=== PATIENT | female | born 1975 | race Caucasian/White ===

== ENCOUNTER 2023-05-02 18:14 | Emergency (ER) | payer OTHER ==
[~2023-05-02] VITALS: Ht 162.6 cm; Wt 101.0 kg
[~2023-05-02 18:14] MED LIST: FLOMAX0.4 MG PO; KETOROLAC TROME10 MG PO; ONDANSETRON ODT4 MG PO
--- OUTSIDE RECORDS SUMMARY | 2023-05-02 18:22 | XMS ---
PreManage Notification: DINA ERNANDEZ [employer] Events No recent Security Events currently on file CRITERIA MET - [facility] - 2 Visits in 30 Days CARE PROVIDERS There are no care providers on record at this time. Lisette has no Care Guidelines for this patient. Abdelrahman [facility] (12 MO.) [facility] NOTE: Visits indicate total known visits. ED/C VISIT TRACKING (12 MO.) [facility]02[facility]2023 18[facility] COMPLAINT: - ABDOMINAL PAIN 04/03/2023 17:50 [facility] OR TYPE: Emergency COMPLAINT: - ABDOMINAL PAIN DIAGNOSES: - Allergy status to analgesic agent - Allergy status to narcotic agent - Allergy status to sulfonamides - Hydronephrosis with renal and ureteral calculous obstruction - Unspecified abdominal pain INPATIENT VISIT TRACKING (12 MO.) No inpatient visits to display in this time frame [id number]
[2023-05-02 19:23] LABS: BASOPHILS 0.9 % (0-2); EOSINOPHILS 1.2 % (0-6); HEMATOCRIT 41.3 % (35.0-50.0); HEMOGLOBIN 13.9 g/dL (12.0-18.0); LYMPHOCYTES 25.5 % (24-44); MCH 29.5 (27-36); MCHC 33.7 g/dl (30-36); MCV 87.6 fl (81-99); MONOCYTES 7.3 % (0-12); NEUTROPHILS 65.1 % (39-80); PLATELET COUNT 302 K/uL (140-440); RBC 4.71 M/ul (4.3-5.7); RDW 13.9 (10.5-15.0)
[2023-05-02 19:27] LABS: BILIRUBIN, URINE NEGATIVE (negative); BLOOD/HGB, URINE LARGE (Negative); KETONE, URINE NEGATIVE (Negative); LEUK ESTERASE, URINE NEGATIVE (negative); NITRITE, URINE NEGATIVE (negative); PH, URINE 6.5 (5-7)
[2023-05-02 19:33] LABS: ALBUMIN 3.8 g/dL (3.4-5.0); ALBUMIN/GLOBULIN RATIO 1.23 (1.1-2.4); ANION GAP 11.5 (7-21); BILIRUBIN, TOTAL 0.3 ng/dL (0.2-1.0); BUN/CREATININE RATIO 11.65 (6.0-28.6); CALCIUM 9.1 mg/dL (8.5-10.1); CREATININE, SERUM 1.03 mg/dL (0.55-1.02); POTASSIUM 4.5 mmol/L (3.5-5.1); PROTEIN, TOTAL 6.9 g/dL (6.4-8.2)
[2023-05-02 19:37] LABS: RED BLOOD CELLS, URINE >50 /hpf (0-5)
[2023-05-02 19:39] LABS: BACTERIA, URINE NONE SEEN /hpf (negative); CASTS, URINE NONE SEEN \\lpf; COLLECTION TYPE, URINE CLEAN CATCH; CRYSTALS, URINE NONE SEEN (0-1+); EPITHELIAL CELLS, URINE SQUAMOUS 1+ /lpf (0-1+); REFLEX CULTURE, URINE No (No)
[2023-05-02] MEDS ORDERED: FLOMAX0.4 MG PO (21:44)
[2023-05-02] MEDS ORDERED: KETOROLAC TROME10 MG PO (21:44)
[2023-05-02] MEDS ORDERED: ONDANSETRON ODT8 MG PO (21:44)
[2023-05-02] MEDS ORDERED: HYDROCODON-ACE1 EA10 PO (21:44)
[2023-05-02] MEDS ORDERED: MACROBID 100 M100 MG PO (21:46)
[2023-05-02 22:28] VITALS: BP 122/78
== END 2023-05-02 22:15 | disposition home or self-care (01) ==
LOC: ED 18:14
DX: N20.0 Calculus of kidney (principal); R79.89 Other specified abnormal findings of blood chemistry; Z88.2 Allergy status to sulfonamides; Z88.5 Allergy status to narcotic agent; Z88.6 Allergy status to analgesic agent
CPT/HCPCS: 36415; 74177; 80053; 81001; 83690; 85025; 96375; 99284-25; A9270; J1885; J2405; J7030; Q9967

== ENCOUNTER 2023-09-02 17:03 | Emergency (ER) | payer OTHER ==
[~2023-09-02] VITALS: Ht 162.6 cm; Wt 99.0 kg
[~2023-09-02 17:03] MED LIST changes: +HYDROCODON-ACE1 EA10 PO; +MACROBID 100 M100 MG PO; +ONDANSETRON ODT8 MG PO
[2023-09-02 18:19] LABS: INFLUENZA B NAA NEGATIVE (NEGATIVE); RESPIRATORY SYNCYTIAL VIR NAA NEGATIVE (NEGATIVE)
[2023-09-02] MEDS ORDERED: ACETAMINOPHEN 500 MG TAB PO ONE (18:45)
[2023-09-02] MEDS ORDERED: LACTATED RINGER'S 1,000 ML IV ONE (20:30)
[2023-09-02] MEDS ORDERED: diphenhydrAMINE HCL 50 MG/ML VIAL IV ONE (20:45)
[2023-09-02] MEDS ORDERED: KETOROLAC TROMETHAMINE 30 MG/ML VIAL IV ONE (20:45)
[2023-09-02] MEDS ORDERED: OSELTAMIVIR PHOSPHATE 75 MG HOME.PACK PO ONE (20:45)
[2023-09-02] MEDS ORDERED: PROCHLORPERAZINE EDISYLATE 10 MG/2 ML VIAL IV ONE (20:45)
[2023-09-02] MEDS ORDERED: ALBUTEROL/IPRATROPIUM 3 ML NEB INH ONE (21:15)
[2023-09-02] MEDS ORDERED: ALBUTEROL SULFATE 8 GM HOME.PACK INH ONE (22:00)
[2023-09-02] MEDS ORDERED: INHALER, ASSIST DEVICES 1 EACH SPACER MISC ONE (22:00)
[2023-09-02 22:15] VITALS: BP 120/65
== END 2023-09-02 22:15 | disposition home or self-care (01) ==
LOC: ED 17:03
PROVIDERS: Emergency Medicine
DX: J10.1 Influenza due to other identified influenza virus with other respiratory manifestations (principal); G43.909 Migraine, unspecified, not intractable, without status migrainosus; Z88.2 Allergy status to sulfonamides; Z88.5 Allergy status to narcotic agent
CPT/HCPCS: 87502; 94640; 94664; 96374; 96375; 99283-25; A9270; J0780; J1200; J1885; J7121; U0002

== ENCOUNTER 2023-11-21 16:12 | Emergency (ER) | payer OTHER ==
[~2023-11-21] VITALS: Ht 162.6 cm; Wt 90.0 kg
[2023-11-21] MEDS ORDERED: AMITRIPTYLINE H25 MG PO (16:52)
[2023-11-21] MEDS ORDERED: TAMSULOSIN HCL0.4 MG PO (16:52)
[2023-11-21] MEDS ORDERED: OXYBUTYNIN CHLOR5 M1 PO (16:52)
[2023-11-21] MEDS ORDERED: NYSTATIN100000 UN1 PO (16:52)
[2023-11-21] MEDS ORDERED: SUMATRIPTAN SUC50 MG PO (16:52)
[2023-11-21 17:00] LABS: BASOPHILS 0.7 % (0-2); EOSINOPHILS 0.4 % (0-6); HEMATOCRIT 42.7 % (35.0-50.0); HEMOGLOBIN 14.4 g/dL (12.0-18.0); LYMPHOCYTES 23.2 % (24-44); MCH 30.1 (27-36); MCHC 33.6 g/dl (30-36); MCV 89.5 fl (81-99); MONOCYTES 7.3 % (0-12); NEUTROPHILS 68.4 % (39-80); PLATELET COUNT 345 K/uL (140-440); RBC 4.77 M/ul (4.3-5.7); RDW 14.1 (10.5-15.0)
[2023-11-21 17:12] LABS: BILIRUBIN, URINE NEGATIVE (negative); BLOOD/HGB, URINE NEGATIVE (Negative); KETONE, URINE NEGATIVE (Negative); LEUK ESTERASE, URINE NEGATIVE (negative); NITRITE, URINE NEGATIVE (negative)
[2023-11-21 17:19] LABS: ACETAMINOPHEN 0 ug/mL (10-30); ALBUMIN 3.8 g/dL (3.4-5.0); ALBUMIN/GLOBULIN RATIO 0.93 (1.1-2.4); ALCOHOL, MEDICAL <3 ng/dL (<3); ALKALINE PHOSPHATASE 79 U/L (46-116); ALT (SGPT) 23 U/L (14-59); ANION GAP 14.7 (7-21); AST (SGOT) 20 U/L (15-37); BILIRUBIN, TOTAL 0.4 ng/dL (0.2-1.0); CALCIUM 8.8 mg/dL (8.5-10.1); CARBON DIOXIDE 25 mmol/L (21-32); CHLORIDE 104 mmol/L (98-107); CREATININE, SERUM 1.11 mg/dL (0.55-1.02); GLOMERULAR FILTRATION RATE,EST 62 mL/min (>60); POTASSIUM 3.7 mmol/L (3.5-5.1); PROTEIN, TOTAL 7.9 g/dL (6.4-8.2); SALICYLATE 5.1 mg/dL (2.8-20.0); TSH, 3RD GENERATION 2.561 uIU/mL (0.358-3.740); UREA NITROGEN 10 mg/dL (7-18)
[2023-11-21 17:28] LABS: AMPHETAMINES, URINE NEGATIVE (NEGATIVE); BARBITURATES, URINE NEGATIVE (NEGATIVE); BENZODIAZEPINE, URINE NEGATIVE (NEGATIVE); BUPRENORPHINE, URINE NEGATIVE (NEGATIVE); CANNABINOID, URINE POSITIVE (NEGATIVE); COCAINE, URINE NEGATIVE (NEGATIVE); ECSTASY, URINE NEGATIVE (NEGATIVE); FENTANYL, URINE NEGATIVE (NEGATIVE); METHADONE, URINE NEGATIVE (NEGATIVE); OPIATES, URINE NEGATIVE (NEGATIVE); OXYCODONE, URINE NEGATIVE (NEGATIVE); PHENCYCLIDINE, URINE NEGATIVE (NEGATIVE)
[2023-11-21] MEDS ORDERED: SUMAtriptan succinate 50 MG TAB PO ONE (17:30)
[2023-11-21] MEDS ORDERED: ACETAMINOPHEN 500 MG TAB PO ONE (17:30)
[2023-11-21 19:30] VITALS: BP 161/120
== END 2023-11-21 19:30 | disposition home or self-care (01) ==
LOC: ED 16:12
PROVIDERS: Emergency Medicine
DX: R45.851 Suicidal ideations (principal); Z88.2 Allergy status to sulfonamides; Z88.5 Allergy status to narcotic agent; Z79.899 Other long term (current) drug therapy
CPT/HCPCS: 36415; 80053; 80307; 81003; 84443; 84703; 85025; 99285; A9270; G0480

== ENCOUNTER 2024-08-20 05:42 | Day surgery (SDC) | payer OTHER ==
[2024-08-17 15:01] VITALS: BP 128/91
[~2024-08-20] VITALS: Ht 162.6 cm; Wt 75.0 kg
[~2024-08-20 05:42] MED LIST changes: +AMITRIPTYLINE H25 MG PO; +ECHINACEA500 MG PO; +L-ARGININE500 MG PO; +LACTATED RINGER'S 1,000 ML IV SCH; +NYSTATIN100000 UN1 PO; +OXYBUTYNIN CHLOR5 M1 PO; +POTASSIUM99 M3 PO; +PROBIOTIC1 EAC8 PO; +SUMATRIPTAN SUC50 MG PO; +TAMSULOSIN HCL0.4 MG PO; +VENTOLIN HFA18 GM PO; +VITAMIN B COMP1 EACH PO; +VITAMIN C250 M1 PO
[2024-08-20 05:57] VITALS: BP 134/81
[2024-08-20] MEDS ORDERED: ZYRTEC10 MG PO (06:05)
[2024-08-20] MEDS ORDERED: propofoL 200 MG/20 ML VIAL ONE (06:42)
[2024-08-20] MEDS ORDERED: IBLOOD GLUCOSE TEST STRIP 1 EA TEST VI PRN (07:00)
[2024-08-20] MEDS ORDERED: LIDOCAINE HCL 1% 5 ML SDV INJ ONE (07:00)
[2024-08-20] MEDS ORDERED: ondansetron HCL 4 MG/2 ML VIAL ONE (07:16)
--- NOTE | 2024-08-20 07:20 | NUR ---
PT NOT AVAILABLE FOR VISIT. PROVIDED PRAYER.
[2024-08-20] MEDS ORDERED: LACTATED RINGER'S 1,000 ML IV ONE (07:38)
--- NOTE | 2024-08-20 07:54 | NUR ---
08/20/24 0753 Andressa Gomez 0750-PATIENT ARRIVED TO PACU ON 10L MASK NONAROUSABLE ORAL AIRWAY IN PLACE RR EVEN. PATIENT LAYING LEFT LATERAL ABDOMEN SOFT IVF INFUSING. SR HR 60'S.
[2024-08-20 08:42] VITALS: BP 117/82
--- NOTE | 2024-08-20 09:29 | OR ---
[facility] [address], [place] [address] Signed DATE OF OPERATION: 08/20/2024 SURGEON: Jalen Jeffries MD PREOPERATIVE DIAGNOSIS: Maternal grandfather and father with colonic polyps. POSTOPERATIVE DIAGNOSES: 1. A 4 mm polyp at 8 cm in the rectum. 2. Mild diffuse melanosis coli. 3. Lqdctba-nc-ahjxndoj internal hemorrhoids. PROCEDURE: Colonoscopy with hot biopsy and cold biopsy at 30 cm. ESTIMATED BLOOD LOSS: None. INDICATIONS: Devonte is a 48-year-old female asked to see me for initial screening colonoscopy. Her maternal grandfather and her father both had colonic polyps. She has no lower GI complaints. I gave her a pamphlet in the office on colonoscopy. She understands the nature of the test. There is risk including, but not limited to gas bloating, crampy abdominal pain, bleeding, perforation requiring surgery, and missed diagnosis. We also reviewed the written instructions for the bowel prep line by line. She also explained to me her previous drug history and her panic attacks along with her marijuana use. Therefore, she is in need of monitored anesthesia care with propofol infusion per our nurse home care coordinator. She also told me that Dulcolax pills are too much for her intestines. She wanted to use colon cleanse, followed by the MiraLAX and Gatorade. Most likely the colon cleanse is the cause of her mild melanosis coli. She understands an adult person has to take her home afterwards. She had expressed understanding and wished to proceed. DESCRIPTION OF PROCEDURE: Devonte was taken into our endoscopy suite, placed in the left lateral decubitus position. She was given monitored anesthesia care with propofol infusion per nurse home care coordinator. A digital rectal exam was performed and this was unremarkable. She had a little bit of a hemorrhoid on the one side. She had good sphincter tone. There were no masses. The adult colonoscope was introduced and advanced under direct visualization of camera. It took just a little extra propofol and some abdominal compression to get the Electronically Signed By: JALEN JEFFRIES MD 08/20/24 0929 PATIENT NAME: DEVONTE ERNANDEZ OPERATIVE REPORT DATE OF : 79 REPORT #: [id number] PHYSICIAN: JALEN JEFFRIES MD PCP: LALA JUNG MD REPORT IS CONFIDENTIAL AND NOT TO BE RELEASED WITHOUT AUTHORIZATION [facility] [address], [place] [address] Signed scope into the cecum itself. We had to suction off some liquid pasty stool from around the appendiceal orifice. Otherwise, her prep was quite good. The scope was then slowly withdrawn. We took pictures throughout for photodocumentation. She appears to have classic mild tiger striping throughout the entire colon. We went ahead and took a cold biopsy of the sigmoid colon for pathologic review. We then took a tiny 4 mm polyp out of her rectum with hot biopsy forceps at about 8 cm. Upon retroflexion of scope, she does indeed have ldawptl-ap-yxzbjdgc internal hemorrhoid columns. After this, the gas was suctioned out, colonoscope removed. Devonte tolerated the procedure quite well. RECOMMENDATIONS: I will see Devonte back in my office in 7 to 14 days to review her results. She will always need followup colonoscopy every five years due to her family history. It looks like she will always need monitored anesthesia care as well. Jalen Jeffries MD ALB/MODL /[id number] cc: MD Lala Callaway MD Patient Chart Copies: JALEN JEFFRIES MD ~ Electronically Signed By: JALEN JEFFRIES MD 08/20/24 0929 PATIENT NAME: DEVONTE ERNANDEZ OPERATIVE REPORT DATE OF : 79 REPORT #: [id number] PHYSICIAN: JALEN JEFFRIES MD PCP: LALA JUNG MD REPORT IS CONFIDENTIAL AND NOT TO BE RELEASED WITHOUT AUTHORIZATION
--- NOTE | 2024-08-24 11:33 | PATH ---
[facility] [address] [place], [place] [address] Signed SPECIMEN(S): A RECTAL POLYP AT 8 CM SPECIMEN(S): B SIGMOID COLON BIOPSY SPECIMEN SOURCE: A. RECTAL POLYP AT 8 CM B. SIGMOID COLON BIOPSY CLINICAL HISTORY: Family history of polyps. Postop: Melanosis coli, internal hemorrhoids, rectal polyp. FINAL PATHOLOGIC DIAGNOSIS: A. Rectal polyp at 8 cm: - Hyperplastic polyp. B. Sigmoid colon, biopsy: - Hyperplastic colonic mucosa, negative for colitis, granulomas or dysplasia. AMB MICROSCOPIC EXAMINATION: Histologic sections of all submitted blocks are examined by light microscopy. These findings, together with the gross examination, support the pathologic diagnosis. GROSS DESCRIPTION: A. The specimen, labeled and designated "Adebayo, Duong, rectal polyp by 8 cm," is received in formalin and consists of one black soft tissue fragment, 0.3 cm. Entirely submitted in (A1). B. The specimen, labeled and designated "Adebayo, Duong, sigmoid colon biopsy," is received in formalin and consists of one black soft tissue fragment, 0.3 cm. Entirely submitted in (B1). AB (under the direct supervision of a pathologist) The Gross Description was prepared using a voice recognition system. The report was reviewed for accuracy; however, sound-alike word errors, addition and/or deletions may occur. If there is any question about this report, please contact Client Services. ADDITIONAL NOTES: Immunohistochemical and/or in situ hybridization studies if performed in this case included appropriate positive controls that reacted as expected. This test was developed and its performance characteristics determined by [facility]. It has not been cleared or PATIENT NAME: DINA ERNANDEZ PATHOLOGY DATE OF : 79 REPORT #: [id number] PHYSICIAN: SUHAIL KENT PCP: MARIPOSA JUNG MD REPORT IS CONFIDENTIAL AND NOT TO BE RELEASED WITHOUT AUTHORIZATION [facility] [address] [place], [place] [address], [place] [address] Signed approved by the U.S. Food and Drug Administration. The FDA has determined that such clearance or approval is not necessary. This test is used for clinical purposes. It should not be regarded as investigational or for research. [facility] is certified under the Clinical Laboratory Improvement Amendments of 1988 (CLIA) as qualified to perform high complexity clinical laboratory testing. PERFORMING LABORATORY: Technical component was performed by [facility], [address] [place] [id number] (CLIA# [id number]). Professional interpretation was performed by [facility] - [address] [address] [id number] Diagnostician: Kendra Quiñonez MD Pathologist Electronically Signed 08/24/2024 Copies: ~ PATIENT NAME: DINA ERNANDEZ PATHOLOGY DATE OF : 79 REPORT #: [id number] PHYSICIAN: SUHAIL PATHOLOGY PCP: MARIPOSA JUNG MD REPORT IS CONFIDENTIAL AND NOT TO BE RELEASED WITHOUT AUTHORIZATION
== END 2024-08-20 08:50 | disposition home or self-care (01) ==
LOC: DS 05:42
PROVIDERS: ATTEND Colon & Rectal Surgery
PROC: 0DBN8ZZ Excision of Sigmoid Colon, Via Natural or Artificial Opening Endoscopic (ICD-10-PCS; 2024-08-20)
PROC: 0DBP8ZZ Excision of Rectum, Via Natural or Artificial Opening Endoscopic (ICD-10-PCS; principal; 2024-08-20 07:30)
DX: Z12.11 Encounter for screening for malignant neoplasm of colon (principal); K62.1 Rectal polyp; K64.8 Other hemorrhoids; K63.89 Other specified diseases of intestine; F12.10 Cannabis abuse, uncomplicated; F41.0 Panic disorder [episodic paroxysmal anxiety]; Z88.2 Allergy status to sulfonamides; Z88.5 Allergy status to narcotic agent; Z88.8 Allergy status to other drugs, medicaments and biological substances; Z83.718 Family history of other colon polyps
CPT/HCPCS: 00811; 84703; J2405; J2704; J7121